=== PATIENT | male | born 1970 | race Caucasian/White ===

== ENCOUNTER → 2020-03-30 | Outpatient (CLI) | payer OTHER | END | disposition home or self-care (01) | LOC: RADPV 10:55 | PROVIDERS: ATTEND Legal Medicine | DX: R76.11 Nonspecific reaction to tuberculin skin test without active tuberculosis (principal) | CPT/HCPCS: 71046; 71046-TC ==

== ENCOUNTER → 2020-04-13 | Outpatient (CLI) | payer OTHER | END | disposition home or self-care (01) | LOC: RADPV 14:03 | PROVIDERS: ATTEND Legal Medicine | DX: M17.0 Bilateral primary osteoarthritis of knee (principal); M19.071 Primary osteoarthritis, right ankle and foot; M77.31 Calcaneal spur, right foot; M77.32 Calcaneal spur, left foot ==

== ENCOUNTER → 2020-04-29 | Outpatient (CLI) | payer OTHER ==
[2020-04-29 13:20] LABS: BASOPHILS % (AUTO) 0.8 % (0.0-2.0); EOSINOPHILS % (AUTO) 3.5 % (1.0-6.0); HEMATOCRIT 44.8 % (41-53); HEMOGLOBIN 15.7 g/dL (13.5-17.5); LYMPHOCYTES # (AUTO) 1.7 K/uL (1.0-4.8); LYMPHOCYTES % (AUTO) 37.3 % (22.0-44.0); MEAN CORPUSCULAR HEMOGLOBIN 32.1 pg (26.0-34.0); MEAN CORPUSCULAR VOLUME 92 fL (80-100); MONOCYTES # (AUTO) 0.4 K/uL (0.1-1.0); MONOCYTES % (AUTO) 8.3 % (2.0-9.0); NEUTROPHILS # (AUTO) 2.3 K/uL (1.8-7.7); NEUTROPHILS % (AUTO) 50.1 % (40.0-70.0); PLATELET COUNT (AUTO) 165 K/uL (150-450); RED BLOOD CELL COUNT(AUTO) 4.89 MIL/uL (4.50-5.90); RED CELL DISTRIBUTION WIDTH 12.7 % (11.5-14.5)
[2020-04-29 13:34] LABS: HEMOGLOBIN A1C 5.1 % (3.8-5.6)
[2020-04-29 13:38] LABS: VITAMIN D,TOTAL (25-0H) 49 ng/mL (30-100)
[2020-04-29 13:47] LABS: PROSTATE SPECIFIC ANTIGEN 2.64 ng/mL (0.00-4.00)
[2020-04-29 13:48] LABS: APPEARANCE,URINE CLEAR (CLEAR); BILIRUBIN,URINE NEGATIVE (NEGATIVE); GLUCOSE, URINE (UA) NEGATIVE (NEGATIVE); KETONES,URINE NEGATIVE (NEGATIVE); LEUKOCYTE ESTERASE ,URINE NEGATIVE (NEGATIVE); NITRATE,URINE NEGATIVE (NEGATIVE); OCCULT BLOOD,URINE NEGATIVE (NEGATIVE); PROTEIN,URINE NEGATIVE (NEGATIVE); UROBILINOGEN,URINE 0.2 mg/dL (<=1.0)
[2020-04-29 13:52] LABS: ALANINE AMINOTRANSFERASE 47 U/L (12-78); ALBUMIN 4.4 g/dL (3.4-5.0); ALKALINE PHOSPHATASE 82 U/L (46-116); ANION GAP 7 mmol/L (8-16); ASPARTATE AMINOTRANSFERASE 30 U/L (15-37); BILIRUBIN,TOTAL 0.7 mg/dL (0.1-1.0); CALCIUM, TOTAL 9.4 mg/dL (8.8-10.5); CARBON DIOXIDE 30 mmol/L (22-29); CHLORIDE 100 mmol/L (98-107); CHOL/HDL RATIO 6.8 (4.2-7.3); CHOLESTEROL 272 mg/dL (131-200); FOLATE SERUM 22.8 ng/mL (5.4-); GLOMERULAR FILTR. RATE CALC 46 mL/min (>60); GLUCOSE,RANDOM 109 mg/dL (70-110); HDL CHOLESTEROL 40 mg/dL (40-60); POTASSIUM 3.6 mmol/L (3.5-5.1); SODIUM SERUM 137 mmol/L (136-145); THYROID STIMULATING HORMONE 1.32 uIU/mL (0.36-3.74); TOTAL PROTEIN, SERUM 7.7 g/dL (6.4-8.2); TRIGLYCERIDES 600 mg/dL (15-150); UREA NITROGEN, BLOOD 26 mg/dL (7-18); VITAMIN B12 LEVEL > 2000 pg/mL (211-911)
== END | disposition home or self-care (01) ==
LOC: LABPV 04-14 07:30
PROVIDERS: ATTEND Legal Medicine
DX: G47.33 Obstructive sleep apnea (adult) (pediatric) (principal); A41.51 Sepsis due to Escherichia coli [E. coli]; B20 Human immunodeficiency virus [HIV] disease; N41.8 Other inflammatory diseases of prostate; I10 Essential (primary) hypertension
CPT/HCPCS: 82306; 82607; 82746; 83036; 84153; 84443

== ENCOUNTER → 2020-05-31 | Outpatient (CLI) | payer OTHER | END | disposition home or self-care (01) | LOC: RADPV 09:01 | PROVIDERS: ATTEND Internal Medicine Cardiovascular Disease | DX: I10 Essential (primary) hypertension (principal); R07.89 Other chest pain | CPT/HCPCS: 93306 ==

== ENCOUNTER → 2020-07-12 | Outpatient (CLI) | payer OTHER | END | disposition home or self-care (01) | LOC: RADMN 10:58 | PROVIDERS: ATTEND Student in an Organized Health Care Education/Training Program | DX: K44.9 Diaphragmatic hernia without obstruction or gangrene (principal); N20.0 Calculus of kidney; K42.0 Umbilical hernia with obstruction, without gangrene; N42.9 Disorder of prostate, unspecified | CPT/HCPCS: 74176 ==

== ENCOUNTER 2020-08-04 10:11 | Emergency (ER) | payer OTHER ==
[~2020-08-04] VITALS: Ht 188 cm; Wt 81.8 kg
[2020-08-04 11:34] VITALS: BP 135/80
[2020-08-04 12:07] LABS: INFLUENZA TYPE A NEGATIVE FOR TYPE A (NEGATIVE); INFLUENZA TYPE B NEGATIVE FOR TYPE B (NEGATIVE)
== END 2020-08-04 11:37 | disposition home or self-care (01) ==
LOC: EMS 10:13
DX: B34.9 Viral infection, unspecified (principal); M79.10 Myalgia, unspecified site; Z20.828 Contact with and (suspected) exposure to other viral communicable diseases
CPT/HCPCS: 87804; 99283; U0003

== ENCOUNTER 2020-09-30 05:35 | Inpatient (IN) | payer OTHER ==
[2020-09-29 12:10] LABS: BASOPHILS % (AUTO) 0.4 % (0.0-2.0); EOSINOPHILS % (AUTO) 4.5 % (1.0-6.0); HEMATOCRIT 40.7 % (41-53); HEMOGLOBIN 13.9 g/dL (13.5-17.5); LYMPHOCYTES # (AUTO) 1.9 K/uL (1.0-4.8); LYMPHOCYTES % (AUTO) 28.6 % (22.0-44.0); MEAN CORPUSCULAR HEMOGLOBIN 30.9 pg (26.0-34.0); MEAN CORPUSCULAR HGB CONC 34.1 G/dL (31.0-37.0); MEAN CORPUSCULAR VOLUME 91 fL (80-100); MONOCYTES # (AUTO) 0.5 K/uL (0.1-1.0); MONOCYTES % (AUTO) 7.3 % (2.0-9.0); NEUTROPHILS # (AUTO) 3.9 K/uL (1.8-7.7); NEUTROPHILS % (AUTO) 59.2 % (40.0-70.0); PLATELET COUNT (AUTO) 224 K/uL (150-450); RED BLOOD CELL COUNT(AUTO) 4.49 MIL/uL (4.50-5.90)
[2020-09-29 12:13] LABS: COVID AG,FIA SOURCE NASOPHARYNGEAL
[2020-09-29 12:21] LABS: CALCIUM, TOTAL 9.2 mg/dL (8.8-10.5); CREATININE 1.32 mg/dL (0.60-1.30); POTASSIUM 3.7 mmol/L (3.5-5.1)
[2020-09-29 12:29] LABS: ALBUMIN 4.1 g/dL (3.4-5.0); BILIRUBIN,TOTAL 0.5 mg/dL (0.1-1.0); TOTAL PROTEIN, SERUM 7.4 g/dL (6.4-8.2)
[~2020-09-30] VITALS: Ht 195.6 cm; Wt 118.2 kg
[~2020-09-30 05:35] MED LIST: SODIUM CHLORIDE 0.9% 1,000 ML ONE
[2020-09-30] MEDS ORDERED: RINGERS SOLUTION,LACTATED 1,000 ML IV ONE ×2 (05:45→09:00)
[2020-09-30] MEDS ORDERED: SODIUM CHLORIDE 0.9% 1,000 ML IV ONE (06:45)
[2020-09-30] MEDS ORDERED: TAMS-13 PO (07:22)
[2020-09-30] MEDS ORDERED: TRAZ-252 PO (07:22)
[2020-09-30] MEDS ORDERED: MAGN296S82 PO (07:22)
[2020-09-30] MEDS ORDERED: TEST100V11 IL (07:22)
[2020-09-30] MEDS ORDERED: GABA-1181 PO (07:22)
[2020-09-30] MEDS ORDERED: LOSA1TAB12 PO (07:22)
[2020-09-30] MEDS ORDERED: ROSU20TA23 PO (07:22)
[2020-09-30] MEDS ORDERED: AMLO2.5T96 PO (07:22)
[2020-09-30] MEDS ORDERED: ERTA1I IM (07:22)
[2020-09-30] MEDS ORDERED: CHOL400T56 PO (07:22)
[2020-09-30] MEDS ORDERED: MULT-1119 PO (07:22)
[2020-09-30] MEDS ORDERED: MODA100T65 PO (07:22)
[2020-09-30] MEDS ORDERED: ELVI1TAB3 PO (07:22)
[2020-09-30 07:46] LABS: PROTHROMBIN TIME 10.7 SEC (9.4-11.6)
[2020-09-30] MEDS ORDERED: FentaNYL CITRATE PF 100 MCG/2 ML VIAL IVP PRN (08:15)
[2020-09-30] MEDS ORDERED: HYDROmorphone 2 MG/ML VIAL IVP PRN ×2 (08:15→13:15)
[2020-09-30] MEDS ORDERED: MEPERIDINE-PF 25 MG/ML VIAL IVP PRN (08:15)
[2020-09-30] MEDS ORDERED: SUGAMMADEX SODIUM 200 MG/2 ML VIAL IVP ONE (09:21)
[2020-09-30] MEDS ORDERED: ACETAMINOPHEN 1000 MG/ISO-OSM 100 ML IV ONE ×2 (09:59→10:30)
[2020-09-30] MEDS ORDERED: SODIUM CL IRRIG SOLN BAG 6,000 ML IRRIG ONE (11:02)
[2020-09-30 11:22] VITALS: BP 123/78
[2020-09-30] MEDS ORDERED: FentaNYL CITRATE PF 100 MCG/2 ML VIAL IVP ONE (12:00)
[2020-09-30] MEDS ORDERED: MIDAZOLAM HCL 2 MG/2 ML VIAL IVP ONE (12:00)
[2020-09-30] MEDS ORDERED: ERTAPENEM SODIUM 1 GM/VIAL IM SCH (13:15)
[2020-09-30] MEDS ORDERED: MAGNESIUM CITRATE 300 ML ORAL SOLUTION PO PRN (13:15)
[2020-09-30] MEDS ORDERED: LIDOCAINE/PF 1% 5 ML VIAL IM SCH (13:15)
[2020-09-30] MEDS: HYDROCODONE/ACETAMINOPHEN 5-325 MG TABLET PO PRN (14:00)
[2020-09-30 15:39] VITALS: BP 127/90
[2020-09-30] MEDS ORDERED: SODIUM CHLORIDE 0.9% 500 ML IV ONE (18:27)
[2020-09-30] MEDS: ERTAPENEM SODIUM 1 GM in SODIUM CHLORIDE 0.9% 50 ML IV SCH (19:00)
[2020-09-30 20:20] VITALS: BP 130/76
[2020-09-30] MEDS: GABAPENTIN 300 MG CAPSULE PO SCH (22:10)
[2020-09-30] MEDS: TraZODone HCL 50 MG TABLET PO PRN (22:10)
[2020-09-30 23:30] VITALS: BP 131/92
[2020-10-01 05:30] VITALS: BP 127/68
[2020-10-01 08:00] VITALS: BP 149/93
[2020-10-01] MEDS ORDERED: HYDROCHLOROTHIAZIDE 25 MG TABLET PO SCH (09:00)
[2020-10-01] MEDS: CHOLECALCIFEROL (VIT D3) 400 UNITS [10 MCG] TABLET PO SCH (09:00)
[2020-10-01] MEDS ORDERED: ROSUVASTATIN CALCIUM 20 MG TABLET PO SCH (09:00)
[2020-10-01] MEDS ORDERED: LOSARTAN POTASSIUM 50 MG TABLET PO SCH (09:00)
[2020-10-01] MEDS ORDERED: TAMSULOSIN HCL 0.4 MG CAPSULE PO SCH (09:00)
[2020-10-01] MEDS: AmLODIPine BESYLATE 2.5 MG TABLET PO SCH (09:00)
[2020-10-01] MEDS: MULTIVITAMINS WITH MINERALS, THERAPEUTIC TABLET PO SCH (09:00)
[2020-10-01] MEDS: MODAFINIL 100 MG TABLET PO SCH (09:00)
[2020-10-01] MEDS: HYDROCODONE/ACETAMINOPHEN 5-325 MG TABLET PO PRN ×2 (09:12→20:03)
[2020-10-01 09:19] LABS: EOSINOPHILS % (AUTO) 0 % (1.0-6.0); HEMATOCRIT 37.8 % (41-53); HEMOGLOBIN 12.8 g/dL (13.5-17.5); LYMPHOCYTES # (AUTO) 1.7 K/uL (1.0-4.8); LYMPHOCYTES % (AUTO) 11.6 % (22.0-44.0); MEAN CORPUSCULAR HEMOGLOBIN 30.6 pg (26.0-34.0); MEAN CORPUSCULAR VOLUME 90 fL (80-100); MONOCYTES # (AUTO) 0.8 K/uL (0.1-1.0); MONOCYTES % (AUTO) 5.3 % (2.0-9.0); NEUTROPHILS # (AUTO) 12.4 K/uL (1.8-7.7); NEUTROPHILS % (AUTO) 83.1 % (40.0-70.0); PLATELET COUNT (AUTO) 210 K/uL (150-450); RED CELL DISTRIBUTION WIDTH 13.9 % (11.5-14.5)
[2020-10-01 12:10] VITALS: BP 138/81
[2020-10-01 16:01] VITALS: BP 135/82
[2020-10-01] MEDS: ERTAPENEM SODIUM 1 GM in SODIUM CHLORIDE 0.9% 50 ML IV SCH (17:27)
[2020-10-01 19:00] VITALS: BP 132/83
[2020-10-01] MEDS: OXYGEN THERAPY IH SCH (19:57)
[2020-10-01] MEDS: TraZODone HCL 50 MG TABLET PO PRN (20:01)
[2020-10-01] MEDS: TAMSULOSIN HCL 0.4 MG CAPSULE PO SCH (20:02)
[2020-10-01] MEDS: LOSARTAN POTASSIUM 50 MG TABLET PO SCH (20:02)
[2020-10-01] MEDS: HYDROCHLOROTHIAZIDE 25 MG TABLET PO SCH (20:02)
[2020-10-01] MEDS: GABAPENTIN 300 MG CAPSULE PO SCH (20:03)
[2020-10-01] MEDS: ROSUVASTATIN CALCIUM 20 MG TABLET PO SCH (20:03)
[2020-10-01 23:30] VITALS: BP 134/81
[2020-10-02 04:00] VITALS: BP 140/87
[2020-10-02 07:53] VITALS: BP 136/91
[2020-10-02] MEDS: OXYGEN THERAPY IH SCH (08:00)
[2020-10-02] MEDS: HYDROCODONE/ACETAMINOPHEN 5-325 MG TABLET PO PRN ×3 (08:20→20:16)
[2020-10-02] MEDS: TAMSULOSIN HCL 0.4 MG CAPSULE PO SCH (09:00)
[2020-10-02] MEDS: MULTIVITAMINS WITH MINERALS, THERAPEUTIC TABLET PO SCH (09:00)
[2020-10-02] MEDS: CHOLECALCIFEROL (VIT D3) 400 UNITS [10 MCG] TABLET PO SCH (09:00)
[2020-10-02] MEDS: MODAFINIL 100 MG TABLET PO SCH (09:00)
[2020-10-02] MEDS: AmLODIPine BESYLATE 2.5 MG TABLET PO SCH (09:00)
[2020-10-02] MEDS: ROSUVASTATIN CALCIUM 20 MG TABLET PO SCH (09:00)
[2020-10-02] MEDS ORDERED: ERTAPENEM SODIUM 1 GM in SODIUM CHLORIDE 0.9% 50 ML IV ONE (11:00)
[2020-10-02 15:45] VITALS: BP 131/84
[2020-10-02] MEDS ORDERED: LIDOCAINE 2% 5 ML JELLY TP ONE (17:00)
[2020-10-02 20:00] VITALS: BP 126/81
[2020-10-02] MEDS ORDERED: TAMSULOSIN HCL 0.4 MG CAPSULE PO SCH (20:00)
[2020-10-02] MEDS: HYDROCHLOROTHIAZIDE 25 MG TABLET PO SCH (20:00)
[2020-10-02] MEDS ORDERED: ROSUVASTATIN CALCIUM 20 MG TABLET PO SCH (20:00)
[2020-10-02] MEDS: LOSARTAN POTASSIUM 50 MG TABLET PO SCH (20:10)
[2020-10-02] MEDS: GABAPENTIN 300 MG CAPSULE PO SCH (20:11)
[2020-10-03 07:30] VITALS: BP 130/80
[2020-10-03] MEDS: HYDROCODONE/ACETAMINOPHEN 5-325 MG TABLET PO PRN (07:32)
[2020-10-03] MEDS: MULTIVITAMINS WITH MINERALS, THERAPEUTIC TABLET PO SCH (08:17)
[2020-10-03] MEDS: AmLODIPine BESYLATE 2.5 MG TABLET PO SCH ×2 (08:17→09:00)
[2020-10-03] MEDS: MODAFINIL 100 MG TABLET PO SCH (08:17)
[2020-10-03] MEDS: CHOLECALCIFEROL (VIT D3) 400 UNITS [10 MCG] TABLET PO SCH (08:17)
[2020-10-03] MEDS ORDERED: SODIUM CHLORIDE 0.9% IRRIG BTL 1,000 ML IRRIG ONE (10:31)
[2021-07-31] MEDS ORDERED: PROPOFOL 1% 20 ML VIAL IVP ONE (12:00)
[2021-07-31] MEDS ORDERED: DEXAMETHASONE SOD PHOS 4 MG/ML VIAL IVP ONE (12:00)
[2021-07-31] MEDS ORDERED: ROCURONIUM BROMIDE 10 MG/ML 5 ML VIAL IVP ONE (12:00)
[2021-07-31] MEDS ORDERED: LIDOCAINE/PF 2% 5 ML VIAL IM ONE (12:00)
[2021-07-31] MEDS ORDERED: ONDANSETRON HCL 4 MG/2 ML VIAL IVP ONE (12:00)
== END 2020-10-03 14:15 | disposition home or self-care (01) | DRG 714 ==
LOC: 4E 05:35 → EDSTATUS 07:30
PROVIDERS: ADMIT Urology; ATTEND Urology
PROC: 0VB08ZZ Excision of Prostate, Via Natural or Artificial Opening Endoscopic (ICD-10-PCS; principal; 2020-09-30 07:45)
DX: N40.1 Benign prostatic hyperplasia with lower urinary tract symptoms (principal); N42.0 Calculus of prostate; Z87.440 Personal history of urinary (tract) infections; Z20.822 Contact with and (suspected) exposure to COVID-19
CPT/HCPCS: 84153; 87081; 87426; 88305; 93005; A9575; G0378; J0131; J1100; J1170; J1335; J2001; J2250; J2405; J2704; J3010; J3490; J7030; J7040; J7050; J7120; 36415-L1; 36415-TC; 71045-TC

== ENCOUNTER 2021-06-27 09:45 | Emergency (ER) | payer OTHER ==
[~2021-06-27] VITALS: Ht 195.6 cm; Wt 81.8 kg
[~2021-06-27 09:45] MED LIST changes: +AMLO2.5T96 PO; +CHOL400T56 PO; +ELVI1TAB3 PO; +ERTA1I IM; +GABA-1181 PO; +LOSA1TAB12 PO; +MAGN296S82 PO; +MODA100T65 PO; +MULT-1119 PO; +ROSU20TA73 PO; -SODIUM CHLORIDE 0.9% 1,000 ML ONE; +TAMS-13 PO; +TEST100V11 IL; +TRAZ-252 PO
[2021-06-27 10:23] LABS: COVID AG,FIA SOURCE NASAL SWAB
[2021-06-27] MEDS ORDERED: SODIUM CHLORIDE 0.9% 1,000 ML IV ONE (11:45)
[2021-06-27 11:47] LABS: BASOPHILS % (AUTO) 0.6 % (0.0-2.0); EOSINOPHILS % (AUTO) 1.1 % (1.0-6.0); HEMATOCRIT 42.7 % (41-53); HEMOGLOBIN 14.4 g/dL (13.5-17.5); LYMPHOCYTES # (AUTO) 1.4 K/uL (1.0-4.8); LYMPHOCYTES % (AUTO) 16.6 % (22.0-44.0); MEAN CORPUSCULAR HEMOGLOBIN 31.2 pg (26.0-34.0); MEAN CORPUSCULAR HGB CONC 33.8 G/dL (31.0-37.0); MEAN CORPUSCULAR VOLUME 92 fL (80-100); MONOCYTES # (AUTO) 0.6 K/uL (0.1-1.0); MONOCYTES % (AUTO) 6.7 % (2.0-9.0); NEUTROPHILS # (AUTO) 6.3 K/uL (1.8-7.7); PLATELET COUNT (AUTO) 181 K/uL (150-450); RED BLOOD CELL COUNT(AUTO) 4.62 MIL/uL (4.50-5.90); RED CELL DISTRIBUTION WIDTH 14.9 % (11.5-14.5)
[2021-06-27 11:55] LABS: CALCIUM, TOTAL 8.9 mg/dL (8.8-10.5); CREATININE 1.27 mg/dL (0.60-1.30); POTASSIUM 3.6 mmol/L (3.5-5.1)
[2021-06-27 12:01] LABS: ALBUMIN 4.2 g/dL (3.4-5.0); BILIRUBIN,TOTAL 2.8 mg/dL (0.1-1.0); TOTAL PROTEIN, SERUM 7.3 g/dL (6.4-8.2)
[2021-06-27 13:04] VITALS: BP 131/67
== END 2021-06-27 13:28 | disposition home or self-care (01) ==
LOC: EMS 09:45
DX: B34.9 Viral infection, unspecified (principal); E86.0 Dehydration; I10 Essential (primary) hypertension; Z20.822 Contact with and (suspected) exposure to COVID-19
CPT/HCPCS: 36415; 71045; 80053; 85025; 87426; 96360; 99284; J7030; U0003

== ENCOUNTER 2022-03-06 08:23 | Emergency (ER) | payer OTHER ==
[~2022-03-06] VITALS: Ht 195.6 cm; Wt 113.6 kg
[~2022-03-06 08:23] MED LIST changes: +MAGN296S PO; -MAGN296S82 PO
[2022-03-06 09:45] LABS: BASOPHILS % (AUTO) 0.3 % (0.0-2.0); EOSINOPHILS % (AUTO) 1.2 % (1.0-6.0); HEMATOCRIT 45.6 % (41-53); HEMOGLOBIN 15.6 g/dL (13.5-17.5); LYMPHOCYTES # (AUTO) 1.3 K/uL (1.0-4.8); LYMPHOCYTES % (AUTO) 19.4 % (22.0-44.0); MEAN CORPUSCULAR HEMOGLOBIN 31.3 pg (26.0-34.0); MEAN CORPUSCULAR HGB CONC 34.2 G/dL (31.0-37.0); MEAN CORPUSCULAR VOLUME 92 fL (80-100); MONOCYTES # (AUTO) 0.7 K/uL (0.1-1.0); MONOCYTES % (AUTO) 10.6 % (2.0-9.0); NEUTROPHILS # (AUTO) 4.7 K/uL (1.8-7.7); NEUTROPHILS % (AUTO) 68.5 % (40.0-70.0); PLATELET COUNT (AUTO) 205 K/uL (150-450); RED BLOOD CELL COUNT(AUTO) 4.98 MIL/uL (4.50-5.90); RED CELL DISTRIBUTION WIDTH 13.7 % (11.5-14.5)
[2022-03-06 09:56] LABS: ANION GAP 5 mmol/L (8-16); CALCIUM, TOTAL 9.6 mg/dL (8.8-10.5); CARBON DIOXIDE 32 mmol/L (22-29); CHLORIDE 100 mmol/L (98-107); CREATININE 1.25 mg/dL (0.60-1.30); GLUCOSE,RANDOM 105 mg/dL (70-110); POTASSIUM 4.3 mmol/L (3.5-5.1); SODIUM SERUM 137 mmol/L (136-145); UREA NITROGEN, BLOOD 21 mg/dL (7-18)
[2022-03-06 09:57] LABS: GLOMERULAR FILTR. RATE CALC > 60 mL/min (>60)
[2022-03-06 10:02] LABS: ALANINE AMINOTRANSFERASE 33 U/L (12-78); ALBUMIN 4.3 g/dL (3.4-5.0); ALKALINE PHOSPHATASE 92 U/L (46-116); ASPARTATE AMINOTRANSFERASE 20 U/L (15-37); BILIRUBIN,TOTAL 0.7 mg/dL (0.1-1.0); TOTAL PROTEIN, SERUM 8.1 g/dL (6.4-8.2)
[2022-03-06 10:04] LABS: LACTIC ACID 0.7 mmol/L (0.4-2.0)
[2022-03-06 10:45] LABS: COVID AG,FIA SOURCE NASOPHARYNGEAL
[2022-03-06 11:16] LABS: INFLUENZA TYPE A NEGATIVE FOR TYPE A (NEGATIVE); INFLUENZA TYPE B NEGATIVE FOR TYPE B (NEGATIVE)
[2022-03-06 11:31] LABS: APPEARANCE,URINE CLEAR (CLEAR); BILIRUBIN,URINE NEGATIVE (NEGATIVE); GLUCOSE, URINE (UA) NEGATIVE (NEGATIVE); KETONES,URINE NEGATIVE (NEGATIVE); LEUKOCYTE ESTERASE ,URINE NEGATIVE (NEGATIVE); NITRATE,URINE NEGATIVE (NEGATIVE); OCCULT BLOOD,URINE NEGATIVE (NEGATIVE); PH,URINE 6.5 (5.0-8.0); PROTEIN,URINE TRACE mg/dL (NEGATIVE); SPECIFIC GRAVITIY, URINE 1.024 (1.003-1.030)
[2022-03-06 11:41] LABS: BACTERIA,URINE None Seen /HPF (None Seen); RBC,URINE 0-2 /HPF (0-2); SQUAMOUS EPITHELIAL CELL,UR Few /LPF (None Seen); WBC,URINE 0-2 /HPF (0-5)
[2022-03-06 11:53] VITALS: BP 132/82
== END 2022-03-06 11:55 | disposition home or self-care (01) ==
LOC: EMS 08:23
DX: M79.18 Myalgia, other site (principal); I10 Essential (primary) hypertension; E78.00 Pure hypercholesterolemia, unspecified; Z79.899 Other long term (current) drug therapy; Z20.822 Contact with and (suspected) exposure to COVID-19
CPT/HCPCS: 71045; 76856; 80053; 81001; 83605; 84484; 85025; 87040; 87804; 93005; 99285; 36415-L1; 36415-TC

== ENCOUNTER 2022-04-24 13:18 | Emergency (ER) | payer OTHER ==
[~2022-04-24] VITALS: Ht 195.6 cm; Wt 115.9 kg
[2022-04-24 13:28] VITALS: BP 145/84
[2022-04-24 13:52] LABS: BASOPHILS % (AUTO) 0.4 % (0.0-2.0); EOSINOPHILS % (AUTO) 1.4 % (1.0-6.0); HEMATOCRIT 38.8 % (41-53); HEMOGLOBIN 13.4 g/dL (13.5-17.5); LYMPHOCYTES # (AUTO) 1.1 K/uL (1.0-4.8); LYMPHOCYTES % (AUTO) 22.5 % (22.0-44.0); MEAN CORPUSCULAR HEMOGLOBIN 30.3 pg (26.0-34.0); MEAN CORPUSCULAR HGB CONC 34.7 G/dL (31.0-37.0); MEAN CORPUSCULAR VOLUME 87 fL (80-100); MONOCYTES # (AUTO) 0.5 K/uL (0.1-1.0); MONOCYTES % (AUTO) 9.1 % (2.0-9.0); NEUTROPHILS # (AUTO) 3.4 K/uL (1.8-7.7); NEUTROPHILS % (AUTO) 66.6 % (40.0-70.0); PLATELET COUNT (AUTO) 222 K/uL (150-450); RED BLOOD CELL COUNT(AUTO) 4.44 MIL/uL (4.50-5.90)
[2022-04-24 14:04] LABS: PROTHROMBIN TIME 10.7 SEC (9.4-11.6)
[2022-04-24] MEDS ORDERED: LIDOCAINE/PF 1% 5 ML VIAL ONE (15:45)
== END 2022-04-24 17:01 | disposition home or self-care (01) ==
LOC: EMS 13:18
DX: M25.462 Effusion, left knee (principal); I10 Essential (primary) hypertension; E78.00 Pure hypercholesterolemia, unspecified; Z79.899 Other long term (current) drug therapy
CPT/HCPCS: 99284; 87205; 85025; 85610; 85730; 89060; 36415; 87075; 87070; 75989; J2001